=== PATIENT | male | born 1940 | race Caucasian/White ===

== ENCOUNTER 2018-06-10 09:52 | Inpatient (IN) | payer MEDICARE, OTHER ==
[~2018-06-10] VITALS: Ht 182.9 cm; Wt 103.4 kg
[2018-06-10 09:53] VITALS: BP 109/62
[2018-06-10 10:14] LABS: ABSOLUTE BASOPHILS 0.1 thou/uL (0.0-0.2); ABSOLUTE EOSINOPHILS 0.3 thou/uL (0.0-0.7); ABSOLUTE LYMPHOCYTES 1.6 thou/uL (0.8-5.3); ABSOLUTE MONOCYTES 0.7 thou/uL (0.0-1.2); ABSOLUTE NEUTROPHILS 5.6 thou/uL (1.6-8.1); BASOPHILS 1.1 %; EOSINOPHILS 3.6 %; HEMATOCRIT 34.7 % (42.0-52.0); HEMOGLOBIN 10.9 gm/dL (14.0-18.0); LYMPHOCYTES 19.8 %; MCH 23.6 pg (26.0-34.0); MCHC 31.5 g/dL (28.0-37.0); MCV 74.9 fL (80.0-100.0); MONOCYTES 8.1 %; MPV 7.9 fl. (7.2-11.1); NUCLEATED RBCS 0 /100WBC; PLATELET COUNT* 293 thou/uL (150-400); POLYS 67.4 %; RBC 4.63 mil/uL (4.50-6.00); WBC 8.3 thou/uL (4.0-11.0)
[2018-06-10] MEDS ORDERED: VENTOLIN HFA 1818 GM INH (10:23)
[2018-06-10 10:25] LABS: APTT 27.5 Seconds (25.0-31.3); INR 1.1; PROTIME 10.8 Seconds (9.20-11.50)
[2018-06-10] MEDS ORDERED: BISACODYL SUPP10 MG RECTAL (10:25)
[2018-06-10] MEDS ORDERED: B12INJ PO (10:26)
[2018-06-10] MEDS ORDERED: PLAVIX 75 MG TA75 M1 PO (10:27)
[2018-06-10 10:28] LABS: CALCIUM 8.8 mg/dL (8.5-10.1); CREATININE 1.7 mg/dL (0.6-1.3)
[2018-06-10] MEDS ORDERED: ATORVASTATIN CA40 MG PO (10:28)
[2018-06-10] MEDS ORDERED: BISOPROLOL FUMAR5 MG PO (10:28)
[2018-06-10] MEDS ORDERED: CHILDREN'S ASPI81 M1 PO (10:29)
[2018-06-10] MEDS ORDERED: BACTRIM DS TAB1 EACH PO (10:30)
[2018-06-10] MEDS ORDERED: MIRALAX17 GM PO (10:30)
[2018-06-10] MEDS ORDERED: PROTONIX40 M1 PO (10:31)
[2018-06-10 10:32] LABS: BE 1.9 mmol/L (-2 to +3); HCO3 24.7 mmol/L (22.0-26.0); PCO2 32.7 mmHg (35.0-45.0); PO2 108.6 mmHg (75.0-100.0); pH 7.496 (7.340-7.450)
[2018-06-10] MEDS ORDERED: GABAPENTIN 100100 MG PO (10:32)
[2018-06-10] MEDS ORDERED: LASIX 40 MG TAB40 M2 PO (10:33)
[2018-06-10] MEDS ORDERED: CHEST CONGESTI400 MG PO (10:33)
[2018-06-10 10:34] LABS: ALBUMIN 2.7 g/dL (3.4-5.0); TOTAL BILIRUBIN 0.4 mg/dL (<0.1-1.0); TROPONIN-I LEVEL 0.22 ng/mL (<0.06)
[2018-06-10 11:50] VITALS: BP 115/54
[2018-06-10 12:00] VITALS: BP 104/61
[2018-06-10 15:39] VITALS: BP 103/55
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
--- NOTE | 2018-06-10 18:10 | EKG ---
[place] [address] ELECTROCARDIOGRAM REPORT Name: PASTOR DUKES Room: [address] ADM IN .R.#: [id number] Admission: 06/10/18 Attend Phys: Marlon Cox Discharge: Date of : 44 Report #: [id number] THIS REPORT FOR: //name// [facility] ED Test Date: 2018-06-10 Test Time: 09:58:44 Pat Name: PASTOR DUKES Department: Room: [facility] Gender: Executive Vice President And Chief Operating Officer: Arianne WRIGHT : 1940 Requested By: Marino Bruner Order Number: [id number] MD: Jaspal So Measurements Intervals [place] Rate: 83 P: 59 [place]: 239 QRS: -89 QRSD: 141 T: 151 QT: 413 QTc: 486 Interpretive Statements Sinus rhythm Prolonged [place] interval Probable left atrial enlargement Right bundle branch block Inferior infarct, old Compared to ECG 04/13/2011 17:38:34 First degree AV block now present Right bundle-branch block now present Myocardial infarct finding now present Electronically Signed On 06-10-2018 18:10:37 BUCKLE SEWER MACHINE by Jaspal So [email or web address] <ELECTRONICALLY SIGNED> By: Jaspal So MD, FACC 06/10/18 1810 0958 [id number] Jaspal So MD, FAC /EPI
--- NOTE | 2018-06-10 18:57 | NUR ---
PT REMAINS STABLE AND W/O C/O PAIN OR DISTRESS. HE HAS A GOOD APPETITE AND ATE 100% OF HIS DINNER. NURSING WILL CONTINUE TO MONITOR.
[2018-06-10 20:00] VITALS: BP 135/65
[2018-06-10 23:38] VITALS: BP 105/59
[2018-06-11 04:38] VITALS: BP 110/60
--- NOTE | 2018-06-11 07:07 | NUR ---
ASSUMED PT CARE AT 1915 REPORT RECEIVED FROM NURSE, PT IS AOX3 WITH DIFFICULTY OF SPEECH. Y5MXERV PERFORMED. SR ON MONITOR. MEDS GIVEN . TOLORATED WELL. O2 MAINTAINED DURING NIGHT AND WHILE REPOSITIONING. WILL CONTINUE TO MONITOR,
[2018-06-11 08:00] VITALS: BP 90/56
[2018-06-11 12:00] VITALS: BP 109/62
[2018-06-11 16:00] VITALS: BP 112/81
--- NOTE | 2018-06-11 18:26 | NUR ---
VSS, ASSUMED CARE IN THE AM, ASSESSMENT PERFORMED AND CHARTED, FALL PRECAUTIONS IN PLACE CALL LIGHT IN REACH, PT IS A&O2, PT IS BED REST WITH RIGHT SIDE WEAKNESS, PT IS ON 2L NC PRN, HE HAS A HARD TIME WITH FINDING WORDS, PT DENIES ANY PAIN AND HAS JEROME IN PLACE AND IS DRAINING, HE IS A Q2 TUEN AND IS TRACING SR ON THE MONITOR, PT GOAL IS TO SIT UP IN BED WHEN EATTING AND IMPROVE BREATHING, AT THIS TIME THERE ARE NO STATUS CHANGE, AND HOURLY ROUNDS COMPLETED, WILL FOLLOW WITH PLAN OF CARE.
[2018-06-11 20:00] VITALS: BP 106/74
[2018-06-12] VITALS: BP 106/69
[2018-06-12 04:00] VITALS: BP 106/76
--- NOTE | 2018-06-12 04:30 | NUR ---
ASSUMED CARE OF PT AFTER REPORT AT 1930. PT A&OX1-2. PT HAVING A HARD TIME TO EXPRESS HIS NEEDS. ABLE TO ANSWER YES/NO QUESTIONS. PT ON O2 AT 2L NC WITH 945 O2 SAT. PT TRACING SR/1ST DEG/PVC ON TELE. PT RESTED WELL ON BED. PT WITH EPISODE OF INCONTINENT BOWEL. PT WITH SUPRAPUBIC JEROME TO DEPENDENT DRAIN. RIGHT SIDED WEANESS NOTED. DENIES ANY PAIN OR DISCOMFORT. PT TURNED EVERY 2 HOURS. HOURLY ROUNDING OBSERVED. CALL LIGHT WITHIN REACH. BED IN LOW POSITION. BED ALARM ON.
[2018-06-12 08:00] VITALS: BP 98/66
[2018-06-12 12:00] VITALS: BP 97/52
--- NOTE | 2018-06-12 14:35 | NUR ---
PATIENT RESTING IN BED. UP WITH MAX ASSIST OF MARCELA. PAITNET AOX2 AND SLOW TO RESPOND AT TIMES. SUPRAPUBIC CATH IN PLACE AND DRAINING CLEAR/YELLOW URINE. VITAL SIGNS STABLE AND PATIENT IN NOAPPARNET SIGNS OF DISTRESS AT THIS TIME. HOURLY ROUNDING COMPLETD FOR PATIENT SAFETY. POSSIBLE DC TOMORROW.
--- NOTE | 2018-06-12 14:57 | NUR ---
Pt was asleep, CM spoke with Pt's hard candy spinner at bedside. Pt was living at home alone in [place], up until April when he had a stroke, Pt now resides with his sister and is total care with dressing, food prep, and hygiene. 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 Pt is able to feed himself. BIOINFORMATICS SCIENTIST works 6 days/week for 8hrs/day. Pt has a power wc, which is able to operate, chris lift, and hospital bed. Per BIOINFORMATICS SCIENTIST, home is handicap accessible. Pt has no home o2. Sister is able to provide cares when BIOINFORMATICS SCIENTIST is not there. Goal is home at dc, possible dc to home tomorrow. Pt has a wc van and can transport Pt home. No needs anticipated. Following
[2018-06-12 16:00] VITALS: BP 100/51
[2018-06-12 20:00] VITALS: BP 98/48
[2018-06-13] VITALS: BP 130/62
[2018-06-13 04:00] VITALS: BP 111/65
--- NOTE | 2018-06-13 04:44 | NUR ---
ASSUMED CARE OF PT AFTER REPORT AT 1930. PT A&0X3. APHASIC. VSS. PHYSICAL ASSESSMENT COMPLETED AND CHARTED. PT ON RA WITH 92% O2 SAT. PT TRACING SR/ST/1ST DEG/PVC ON TELE. PT RESTED WELL ON BED. RIGHT SIDED WEAKNESS NOTED. PT WITH SUPRAPUBIC JEROME TO DEPENDENT DRAIN. DENIES CHEST PAIN OR SOA. PT TURNED EVERY 2 HOURS. HOURLY ROUNDING OBSERVED. CALL LIGHT WITHIN REACH. BED IN LOW POSITION. BED ALARM ON.
[2018-06-13 08:15] VITALS: BP 119/64
--- NOTE | 2018-06-13 08:15 | NUR ---
ASSUMED PT. CARE AND RECEIVED REPORT AT 0730. PT APPEARS A/OX4 ANSWERING QUESTIONS APPROPRIATELY, VSS, MONITOR ON TRACING SR 1ST, BBB. PT. DENIES CURRENT PAIN/SOB. ON RA @ 94%. FULL ASSESSMENT COMPLETED, REFER TO CHARTING. PT. UP TO RELCINER WITH LIFT THIS MORNING. CALL LIGHT INR EACH, FALL PRECAUTIONS IN PLACE. WILL CONTINUE WITH PLAN OF CARE.
[2018-06-13] MEDS ORDERED: DOXYCYCLINE 10100 MG PO (09:45)
[2018-06-13] MEDS ORDERED: PREDNISONE 20 M20 M1 PO (09:45)
[2018-06-13 12:00] VITALS: BP 108/69
[2018-06-13 12:22] VITALS: BP 119/64
--- NOTE | 2018-06-13 14:37 | NUR ---
DC ORDERS RECEIVED. IV AND MONITOR REMOVED. PT. SISTER GIVEN DC INSTRUCTIONS, SCRIPTS, AND CARENOTES. ALL QUESTIONS ANSWERED. PT. LEFT VIA PERSONAL WHEELCHAIRT RETURN HOME IN PERSONAL VAN. ALL BELONGINGS ACCOUNTED FOR.
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
== END 2018-06-13 14:38 | disposition home health service (06) | DRG 189 ==
LOC: M.ERS 09:52 → M.2W 11:07 → M.TBA-ER 11:07 → M.2W 12:13
PROVIDERS: Family Medicine; ADMIT Internal Medicine
DX: J96.00 Acute respiratory failure, unspecified whether with hypoxia or hypercapnia (principal); J44.1 Chronic obstructive pulmonary disease with (acute) exacerbation; I13.0 Hypertensive heart and chronic kidney disease with heart failure and stage 1 through stage 4 chronic kidney disease, or unspecified chronic kidney disease; I50.32 Chronic diastolic (congestive) heart failure; D64.9 Anemia, unspecified; E78.5 Hyperlipidemia, unspecified; K21.9 Gastro-esophageal reflux disease without esophagitis; G62.9 Polyneuropathy, unspecified; Z87.891 Personal history of nicotine dependence; Z87.820 Personal history of traumatic brain injury; Z79.02 Long term (current) use of antithrombotics/antiplatelets; Z79.82 Long term (current) use of aspirin; Z79.899 Other long term (current) drug therapy; N18.3 Chronic kidney disease, stage 3 (moderate)

== ENCOUNTER 2020-05-28 23:35 | Inpatient (IN) | payer OTHER ==
[~2020-05-28] VITALS: Ht 180.3 cm; Wt 98.9 kg
[~2020-05-28 23:35] MED LIST: ATORVASTATIN CA40 MG PO; B12INJ PO; BACTRIM DS TAB1 EACH PO; BISACODYL SUPP10 MG RECTAL; BISOPROLOL FUMAR5 MG PO; CHEST CONGESTI400 MG PO; CHILDREN'S ASPI81 M1 PO; DOXYCYCLINE 10100 MG PO; GABAPENTIN 100100 MG PO; LASIX 40 MG TAB40 M2 PO; MIRALAX17 GM PO; PLAVIX 75 MG TA75 M1 PO; PREDNISONE 20 M20 M1 PO; PROTONIX40 M1 PO; VENTOLIN HFA 1818 GM INH
[2020-05-28 23:43] VITALS: BP 138/89
[2020-05-29 00:24] LABS: URINE BILIRUBIN NEGATIVE (Negative); URINE BLOOD 2+ (Negative); URINE CLARITY CLEAR; URINE COLOR YELLOW; URINE GLUCOSE-RANDOM 1+ (Negative); URINE KETONES NEGATIVE (Negative); URINE LEUKOCYTES-REFLEX 1+ (Negative); URINE PROTEIN NEGATIVE (Negative); URINE UROBILINOGEN 0.2 E.U./dl (0.2-1.0)
[2020-05-29 00:31] LABS: ABSOLUTE BASOPHILS 0.1 thou/uL (0.0-0.2); ABSOLUTE EOSINOPHILS 0.2 thou/uL (0.0-0.7); ABSOLUTE LYMPHOCYTES 1.5 thou/uL (0.8-5.3); ABSOLUTE MONOCYTES 1.2 thou/uL (0.0-1.2); ABSOLUTE NEUTROPHILS 12.2 thou/uL (1.6-8.1); BASOPHILS 0.5 %; EOSINOPHILS 1.1 %; HEMATOCRIT 48.9 % (42.0-52.0); LYMPHOCYTES 9.6 %; MCH 27.3 pg (26.0-34.0); MCHC 32.7 g/dL (28.0-37.0); MCV 83.4 fL (80.0-100.0); MONOCYTES 8.2 %; MPV 8.1 fl. (7.2-11.1); NUCLEATED RBCS 0 /100WBC; PLATELET COUNT* 291 thou/uL (150-400); POLYS 80.6 %; RBC 5.87 mil/uL (4.50-6.00); RDW-CV 14.2 % (10.5-14.5); WBC 15.2 thou/uL (4.0-11.0)
[2020-05-29 00:42] LABS: URINE NITRITE-REFLEX POSITIVE (Negative)
[2020-05-29 00:45] LABS: CALCIUM 9.5 mg/dL (8.5-10.1); CREATININE 1.9 mg/dL (0.6-1.3); POTASSIUM 3.7 mmol/L (3.5-5.1)
[2020-05-29 00:51] LABS: ALBUMIN 3.3 g/dL (3.4-5.0); TOTAL BILIRUBIN 0.5 mg/dL (<0.1-1.0); TOTAL PROTEIN 8.7 g/dL (6.4-8.2)
[2020-05-29 01:21] LABS: CASTS None Seen /LPF (None Seen); SQUAMOUS 0-3 Few /LPF (0-3)
[2020-05-29 01:22] LABS: CRYSTALS None Seen /LPF (None Seen); URINE RBC >20 Many /HPF (0-2)
[2020-05-29 04:30] VITALS: BP 115/63
[2020-05-29 05:00] VITALS: BP 98/53
[2020-05-29 08:00] VITALS: BP 100/41
[2020-05-29 12:03] LABS: ABSOLUTE BASOPHILS 0.1 thou/uL (0.0-0.2); ABSOLUTE EOSINOPHILS 0.1 thou/uL (0.0-0.7); ABSOLUTE LYMPHOCYTES 1.7 thou/uL (0.8-5.3); ABSOLUTE NEUTROPHILS 7.4 thou/uL (1.6-8.1); BASOPHILS 0.8 %; EOSINOPHILS 1.4 %; HEMATOCRIT 43.2 % (42.0-52.0); LYMPHOCYTES 16.5 %; MCH 27.5 pg (26.0-34.0); MCHC 32.5 g/dL (28.0-37.0); MCV 84.9 fL (80.0-100.0); MONOCYTES 9.6 %; MPV 7.9 fl. (7.2-11.1); NUCLEATED RBCS 0 /100WBC; PLATELET COUNT* 220 thou/uL (150-400); POLYS 71.7 %; RBC 5.09 mil/uL (4.50-6.00); WBC 10.3 thou/uL (4.0-11.0)
[2020-05-29 12:27] LABS: ALBUMIN 2.6 g/dL (3.4-5.0); CALCIUM 8.7 mg/dL (8.5-10.1); CREATININE 1.7 mg/dL (0.6-1.3); POTASSIUM 3.8 mmol/L (3.5-5.1); TOTAL BILIRUBIN 0.4 mg/dL (<0.1-1.0); TOTAL PROTEIN 7.2 g/dL (6.4-8.2)
[2020-05-29 16:00] VITALS: BP 102/50
--- NOTE | 2020-05-29 16:40 | EKG ---
[place] [address] ELECTROCARDIOGRAM REPORT Name: PASTOR DUKES Room: [address] ADM IN M.R.#: [id number] Admission: 05/29/20 Attend Phys: Amalia Guan, Discharge: Date of : 44 Date of Service: 05/29/20 0011 Report #: [id number] THIS REPORT FOR: //name// [facility] ED Test Date: 2020-05-29 Test Time: 00:11:52 Pat Name: PASTOR DUKES Department: Room: [facility] Gender: M Hand Method Lasting Machine Operator: MR : 1940 Requested By: Destini Scott Order Number: [id number] MD: Aron Staton Measurements Intervals [place] Rate: 128 P: [place]: QRS: -78 QRSD: 146 T: 80 QT: 374 QTc: 546 Interpretive Statements Junctional tachycardia Possible inferior scar IVCD right with left axis deviation Compared to ECG 06/10/2018 09:58:44 Junctional tachycardia now present Sinus rhythm no longer present First degree AV block no longer present IVCD right persists Electronically Signed On 05-29-2020 16:40:40 PARALEGAL ASSISTANT by Aron Staton [email or web address] <ELECTRONICALLY SIGNED> By: Aron Staton MD, FACC 05/29/20 1640 Aron Staton MD, FACC /EPI
--- NOTE | 2020-05-29 16:41 | EKG ---
[place] [address] ELECTROCARDIOGRAM REPORT Name: PASTOR DUKES Room: [address] ADM IN M.R.#: [id number] Admission: 05/29/20 Attend Phys: Amalia Guan, Discharge: Date of : 44 Date of Service: 05/29/20 0349 Report #: [id number] THIS REPORT FOR: //name// [facility] ED Test Date: 2020-05-29 Test Time: 03:49:49 Pat Name: PASTOR DUKES Department: Room: [address] Gender: M Operations Support Manager: MR : 1940 Requested By: Destini Scott Order Number: [id number] MD: Aron Staton Measurements Intervals [place] Rate: 88 P: 72 [place]: 242 QRS: -79 QRSD: 150 T: 106 QT: 375 QTc: 454 Interpretive Statements Sinus rhythm Prolonged [place] interval Right bundle branch block Inferior infarct, old Compared to ECG 05/29/2020 00:11:52 First degree AV block now present Right bundle-branch block now present Myocardial infarct finding now present Junctional tachycardia no longer present Electronically Signed On 05-29-2020 16:41:02 LAY OUT DRAFTER by Aron Staton [email or web address] <ELECTRONICALLY SIGNED> By: Aron Staton MD, [facility] 05/29/20 1641 8 8 Aron Staton MD, [facility] /EPI
[2020-05-29 20:00] VITALS: BP 114/69
[2020-05-30] VITALS: BP 115/66
[2020-05-30 04:00] VITALS: BP 117/62
[2020-05-30 04:38] LABS: ABSOLUTE BASOPHILS 0.1 thou/uL (0.0-0.2); ABSOLUTE EOSINOPHILS 0.3 thou/uL (0.0-0.7); ABSOLUTE LYMPHOCYTES 1.9 thou/uL (0.8-5.3); ABSOLUTE MONOCYTES 0.9 thou/uL (0.0-1.2); ABSOLUTE NEUTROPHILS 6.1 thou/uL (1.6-8.1); BASOPHILS 0.7 %; EOSINOPHILS 3.2 %; HEMATOCRIT 40.9 % (42.0-52.0); MCHC 31.7 g/dL (28.0-37.0); MCV 85.4 fL (80.0-100.0); MONOCYTES 9.2 %; MPV 8.3 fl. (7.2-11.1); NUCLEATED RBCS 0 /100WBC; PLATELET COUNT* 206 thou/uL (150-400); POLYS 65.9 %; RBC 4.79 mil/uL (4.50-6.00); RDW-CV 14.1 % (10.5-14.5); WBC 9.3 thou/uL (4.0-11.0)
[2020-05-30 04:40] LABS: CALCIUM 8.4 mg/dL (8.5-10.1); CREATININE 1.5 mg/dL (0.6-1.3); POTASSIUM 3.4 mmol/L (3.5-5.1)
[2020-05-30 08:00] VITALS: BP 125/88
[2020-05-30 12:35] VITALS: BP 111/67
[2020-05-30 16:15] VITALS: BP 127/68
[2020-05-30 20:17] VITALS: BP 119/53
[2020-05-31] VITALS: BP 99/55
[2020-05-31 03:37] VITALS: BP 113/56
[2020-05-31 05:28] LABS: CREATININE 1.5 mg/dL (0.6-1.3); POTASSIUM 3.9 mmol/L (3.5-5.1)
[2020-05-31 08:00] VITALS: BP 115/60
[2020-05-31 09:11] LABS: ABSOLUTE BASOPHILS 0.1 thou/uL (0.0-0.2); ABSOLUTE LYMPHOCYTES 0.8 thou/uL (0.8-5.3); ABSOLUTE MONOCYTES 1.4 thou/uL (0.0-1.2); ABSOLUTE NEUTROPHILS 11.4 thou/uL (1.6-8.1); BASOPHILS 0.4 %; EOSINOPHILS 0.3 %; HEMATOCRIT 40.6 % (42.0-52.0); LYMPHOCYTES 5.7 %; MCH 27.2 pg (26.0-34.0); MCHC 32.1 g/dL (28.0-37.0); MCV 84.7 fL (80.0-100.0); MONOCYTES 10.3 %; MPV 7.8 fl. (7.2-11.1); NUCLEATED RBCS 0 /100WBC; PLATELET COUNT* 214 thou/uL (150-400); POLYS 83.3 %; RBC 4.79 mil/uL (4.50-6.00); RDW-CV 14.2 % (10.5-14.5); WBC 13.7 thou/uL (4.0-11.0)
[2020-05-31 12:28] VITALS: BP 95/56
[2020-05-31 17:32] VITALS: BP 144/79
[2020-06-01] VITALS: BP 109/49
[2020-06-01 04:00] VITALS: BP 119/65
[2020-06-01 04:37] LABS: ABSOLUTE EOSINOPHILS 0.2 thou/uL (0.0-0.7); ABSOLUTE LYMPHOCYTES 1.4 thou/uL (0.8-5.3); ABSOLUTE MONOCYTES 1.2 thou/uL (0.0-1.2); ABSOLUTE NEUTROPHILS 6.7 thou/uL (1.6-8.1); BASOPHILS 0.5 %; EOSINOPHILS 1.6 %; HEMATOCRIT 38.6 % (42.0-52.0); HEMOGLOBIN 12.5 gm/dL (14.0-18.0); LYMPHOCYTES 14.5 %; MCH 27.3 pg (26.0-34.0); MCHC 32.3 g/dL (28.0-37.0); MCV 84.6 fL (80.0-100.0); MONOCYTES 12.6 %; MPV 8.2 fl. (7.2-11.1); NUCLEATED RBCS 0 /100WBC; PLATELET COUNT* 202 thou/uL (150-400); POLYS 70.8 %; RBC 4.56 mil/uL (4.50-6.00); RDW-CV 14.3 % (10.5-14.5); WBC 9.5 thou/uL (4.0-11.0)
[2020-06-01 05:04] LABS: CALCIUM 8.2 mg/dL (8.5-10.1); CREATININE 1.4 mg/dL (0.6-1.3); POTASSIUM 3.2 mmol/L (3.5-5.1)
[2020-06-01 08:00] VITALS: BP 113/64
[2020-06-01] MEDS ORDERED: PREDNISONE 10 M10 MG PO (10:57)
[2020-06-01] MEDS ORDERED: LEVOFLOXACIN750 MG PO (10:57)
[2020-06-01 12:42] VITALS: BP 104/60
[2020-06-01 17:03] VITALS: BP 96/42
[2020-06-01 18:29] VITALS: BP 96/42
== END 2020-06-01 18:34 | disposition home or self-care (01) | DRG 371 ==
LOC: M.ERS 23:35 → M.2W 05-29 03:31 → M.TBA-ER 05-29 03:31 → M.2W 05-29 04:38
PROVIDERS: Internal Medicine; Personal Emergency Response Attendant; ADMIT Internal Medicine; ATTEND Internal Medicine
DX: A04.9 Bacterial intestinal infection, unspecified (principal); R65.11 Systemic inflammatory response syndrome (SIRS) of non-infectious origin with acute organ dysfunction; N17.9 Acute kidney failure, unspecified; N39.0 Urinary tract infection, site not specified; K52.9 Noninfective gastroenteritis and colitis, unspecified; Z20.828 Contact with and (suspected) exposure to other viral communicable diseases; N18.9 Chronic kidney disease, unspecified; I45.6 Pre-excitation syndrome; J44.9 Chronic obstructive pulmonary disease, unspecified; Z87.891 Personal history of nicotine dependence; Z23 Encounter for immunization; Z79.899 Other long term (current) drug therapy

== ENCOUNTER 2021-04-21 05:28 | Emergency (ER) | payer OTHER, MEDICARE ==
[~2021-04-21] VITALS: Ht 180.3 cm; Wt 96.6 kg
[~2021-04-21 05:28] MED LIST changes: +LEVOFLOXACIN750 MG PO; +PREDNISONE 10 M10 MG PO
[2021-04-21] MEDS ORDERED: GLIPIZIDE 10 MG10 MG PO (05:39)
[2021-04-21] MEDS ORDERED: DOCUSATE SODIU1 EACH PO (05:39)
[2021-04-21] MEDS ORDERED: IMDUR 30 MG TAB30 M1 PO (05:40)
[2021-04-21] MEDS ORDERED: METOLAZONE 5 MG5 MG PO (05:41)
[2021-04-21] MEDS ORDERED: EFFER-K 20 MEQ20 ME1 PO (05:42)
[2021-04-21 07:30] VITALS: BP 122/75
== END 2021-04-21 07:31 | disposition home or self-care (01) ==
LOC: M.ERS 05:28
DX: T83.098A Other mechanical complication of other urinary catheter, initial encounter (principal); R33.9 Retention of urine, unspecified; R06.03 Acute respiratory distress; R06.2 Wheezing; R06.02 Shortness of breath; R47.01 Aphasia; I50.9 Heart failure, unspecified; N18.9 Chronic kidney disease, unspecified; J44.9 Chronic obstructive pulmonary disease, unspecified; Z79.2 Long term (current) use of antibiotics; Z79.899 Other long term (current) drug therapy; Z79.82 Long term (current) use of aspirin; Y84.8 Other medical procedures as the cause of abnormal reaction of the patient, or of later complication, without mention of misadventure at the time of the procedure; Y92.89 Other specified places as the place of occurrence of the external cause

== ENCOUNTER 2021-05-09 15:22 | Emergency (ER) | payer OTHER ==
[~2021-05-09] VITALS: Ht 167.6 cm; Wt 93.0 kg
[~2021-05-09 15:22] MED LIST changes: +DOCUSATE SODIU1 EACH PO; +EFFER-K 20 MEQ20 ME1 PO; +GLIPIZIDE 10 MG10 MG PO; +IMDUR 30 MG TAB30 M1 PO; +METOLAZONE 5 MG5 MG PO
[2021-05-09 17:16] LABS: URINE BILIRUBIN NEGATIVE (Negative); URINE BLOOD 3+ (Negative); URINE CLARITY CLEAR; URINE COLOR YELLOW; URINE GLUCOSE-RANDOM NEGATIVE (Negative); URINE KETONES NEGATIVE (Negative); URINE PROTEIN 1+ (Negative); URINE SPECIFIC GRAVITY <= 1.005 (1.005-1.030); URINE UROBILINOGEN 0.2 E.U./dl (0.2-1.0)
[2021-05-09 17:17] LABS: URINE LEUKOCYTES-REFLEX 3+ (Negative); URINE NITRITE-REFLEX POSITIVE (Negative)
[2021-05-09 17:22] LABS: CALCIUM OXALATE 4-10 Moderate /LPF (None Seen); CASTS None Seen /LPF (None Seen); SQUAMOUS 0-3 Few /LPF (0-3); URINE RBC 3-10 Few /HPF (0-2); URINE WBC-REFLEX 6-15 Few /HPF (0-5)
[2021-05-09] MEDS ORDERED: LEVOFLOXACIN500 MG PO (19:08)
[2021-05-09 19:20] VITALS: BP 120/67
== END 2021-05-09 19:22 | disposition home or self-care (01) ==
LOC: M.ERS 15:22
PROVIDERS: Nurse Practitioner Family
DX: T83.090A Other mechanical complication of cystostomy catheter, initial encounter (principal); N39.0 Urinary tract infection, site not specified; N31.2 Flaccid neuropathic bladder, not elsewhere classified; J44.9 Chronic obstructive pulmonary disease, unspecified; N18.9 Chronic kidney disease, unspecified; Z43.5 Encounter for attention to cystostomy; Z79.899 Other long term (current) drug therapy; Z79.82 Long term (current) use of aspirin; Y84.8 Other medical procedures as the cause of abnormal reaction of the patient, or of later complication, without mention of misadventure at the time of the procedure; Y92.89 Other specified places as the place of occurrence of the external cause